=== PATIENT | male | born 1980 | race Hispanic/Latino ===

== ENCOUNTER 2016-08-27 02:56 | Observation (INO) | payer OTHER ==
[2016-08-27 03:55] LABS: BASO # 0.1 K/uL (0.0-0.2); BASO % 0.7 % (0.0-2.0); EOS # 0.1 K/uL (0.0-0.7); EOS % 1.2 % (0.0-4.0); HEMATOCRIT 45.8 % (35.0-51.0); LYMPH # 1.5 K/uL (1.0-4.3); LYMPH % 15.6 % (20.0-40.0); MEAN CELL VOLUME 87.6 fl (80.0-94.0); MEAN CORPUSCULAR HEMOGLOBIN 30.7 pg (27.0-31.0); MONO # 0.8 K/uL (0.0-0.8); MONO % 8.2 % (0.0-10.0); NEUT # 7.1 K/uL (1.8-7.0); NEUT % 74.3 % (50.0-75.0); NRBC % 0.1 % (0.0-0.0); RED CELL DISTRIBUTION WIDTH 13.5 % (11.5-14.5); WHITE BLOOD COUNT 9.6 K/uL (4.8-10.8)
[2016-08-27 04:02] LABS: ALB/GLOB RATIO 1.3 (1.0-2.1); ALCOHOL SERUM < 10 mg/dl (0-10); ALKALINE PHOSPHATASE 121 U/L (38-126); ALT/SGPT 40 U/L (21-72); AST/SGOT 28 U/L (17-59); BILIRUBIN,TOTAL 0.3 mg/dl (0.2-1.3); BLOOD UREA NITROGEN 16 mg/dl (9-20); CALCIUM 9.4 mg/dL (8.4-10.2); CARBON DIOXIDE 24 mmol/L (22-30); CHLORIDE 102 mmol/L (98-107); GFR AFRICAN-AMERICAN > 60; GLUCOSE,RANDOM 114 mg/dL (75-110); POTASSIUM 3.9 MMOL/L (3.6-5.0); SODIUM 142 mmol/l (132-148); TOTAL PROTEIN 8.1 G/DL (6.3-8.2)
--- NOTE | 2016-08-27 05:17 | ED PDOC ---
Upper Extremity Pain/Injury Time Seen by Provider: 08/27/16 03:20 Chief Complaint (Nursing): Upper Extremity Problem/Injury Chief Complaint (Provider): Left arm Pain History Per: Patient History/Exam Limitations: no limitations Onset/Duration Of Symptoms: Hrs (2 hrs) Current Symptoms Are (Timing): Still Present Additional Complaint(s): Brandon Jc, a 36 year old male, who has a history of obesity presents to the ED complaining of left arm pain. The patient reports that the pain started after he used a gram of cocaine. The patient reports that he does not regularly use cocaine and his last usage was some years ago. He reports that he became concerned after he began feeling pain in his left arm. Denies nausea, vomiting, palpitations an diaphoresis. Past Medical History Reviewed: Historical Data, Nursing Documentation, Vital Signs Vital Signs: Last Vital Signs Temp 98.5 F 08/27/16 03:14 Pulse 120 H 08/27/16 03:14 Resp 18 08/27/16 03:14 BP 153/94 H 08/27/16 03:14 Pulse Ox 98 08/27/16 03:14 - Medical History Other PMH: Obesity - Surgical History Surgical History: No Surg Hx - Family History Family History: States: Unknown Family Hx - Social History Current smoker - smoking cessation education provided: No Alcohol: Occasional Drugs: Cocaine - Home Medications Home Medications: Ambulatory Orders Medication Instructions Recorded No Known Home Med 08/27/16 - Allergies Allergies/Adverse Reactions: Allergies Allergy/AdvReac Type Severity Reaction Status Date / Time No Known Allergies Allergy Verified 08/27/16 03:17 Review of Systems ROS Statement: Except As Marked, All Systems Reviewed And Found Negative Constitutional: Positive for: Other (Denies diaphoresis) Cardiovascular: Negative for: Palpitations Gastrointestinal: Negative for: Nausea, Vomiting Musculoskeletal: Positive for: Arm Pain (Left arm pain) Physical Exam - Reviewed Nursing Documentation Reviewed: Yes Vital Signs Reviewed: Yes - Physical Exam Appears: Positive for: Non-toxic, No Acute Distress Head Exam: Positive for: ATRAUMATIC, NORMOCEPHALIC Skin: Positive for: Normal Color, Warm, Dry Eye Exam: Positive for: Normal appearance, EOMI, PERRL ENT: Positive for: Normal ENT Inspection Neck: Positive for: Normal, Painless ROM, Supple Cardiovascular/Chest: Positive for: Regular Rate, Rhythm, Chest Non Tender. Negative for: Tachycardia Respiratory: Positive for: Normal Breath Sounds. Negative for: Wheezing, Respiratory Distress Gastrointestinal/Abdominal: Positive for: Normal Exam, Soft. Negative for: Tenderness Back: Positive for: Normal Inspection. Negative for: L CVA Tenderness, R CVA Tenderness Extremity: Positive for: Normal ROM. Negative for: Deformity, Swelling Neurologic/Psych: Positive for: Alert, Oriented - Laboratory Results Result Diagrams: 08/27/16 03:50 08/27/16 03:50 - ECG O2 Sat by Pulse Oximetry: 98 (RA) Pulse Ox Interpretation: Normal Medical Decision Making Medical Decision Makin:20 Initial Impression: Chest pain in setting of known cocaine use. Initial Plan: * EKG * Alchol serum * CMP * Drug screen * Troponin * CBC * PTT * Prothrombin time * Chest Xray * Aspirin 324mg PO 4:02 Admission Patient will be placed observation status. Case was referred to Dr Franklin Patients labs reviews, no clinically significant abnormalities. Scribe Attestation: Documented by Kiya Locke acting as a scribe for Missy Encinas MD. Scribe Attestation: All medical record entries made by the Scribe were at my direction and personally dictated by me. I have reviewed the chart and agree that the record accurately reflects my personal performance of the history, physical exam, medical decision making, and the department course for this patient. I have also personally directed, reviewed, and agree with the discharge instructions and disposition. Disposition - Clinical Impression Clinical Impression: Chest pain, Cocaine abuse - Patient ED Disposition Is Patient to be Admitted: No Counseled Patient/Family Regarding: Studies Performed, Diagnosis - Disposition Disposition Time: 04:00 Condition: FAIR
[2016-08-27 06:17] LABS: PARTIAL THROMBOPLASTIN TIME 31.2 SECONDS (23.3-32.5)
--- NOTE | 2016-08-27 08:10 | RAD ---
HISTORY: admit COMPARISON: No prior. TECHNIQUE: Chest PA and lateral FINDINGS: LUNGS: No active pulmonary disease. PLEURA: No significant pleural effusion identified. No pneumothorax apparent. CARDIOVASCULAR: Normal. OSSEOUS STRUCTURES: No significant abnormalities. VISUALIZED UPPER ABDOMEN: Normal. OTHER FINDINGS: None. IMPRESSION: No active disease.
--- NOTE | 2016-08-27 10:03 | CARD ---
APPROVED REPORT EKG Measurement Heart [id number] <Conclusion> Sinus tachycardia Otherwise normal ECG
[2016-08-27 15:51] LABS: CHOLESTEROL 144 mg/dL (0-199)
--- NOTE | 2016-08-27 21:52 | CP.PCM.HP ---
History of Present Illness - History of Present Illness History of Present Illness: A 36 yr old male with hx of occasional drug use came with c\o left arm pain, numbness after he did sniff cocaine. dull, achy feeling . sister has have hx of cardiomyopathy.denies fhx of CAD he called 911. Present on Admission - Present on Admission Any Indicators Present on Admission: No Review of Systems - Constitutional Constitutional: Snoring. absent: Chills, Fever - EENT Eyes: absent: Diplopia, Other Visual Disturbances Nose/Mouth/Throat: absent: Epistaxis, Nasal Congestion, Mouth Lesions - Cardiovascular Cardiovascular: Rapid Heart Rate. absent: Dyspnea, Dyspnea on Exertion, Paroxysmal Nocturnal Dyspnea - Respiratory Respiratory: absent: Cough, Chest Congestion - Gastrointestinal Gastrointestinal: Dyspepsia. absent: Constipation - Musculoskeletal Musculoskeletal: absent: Arthralgias, Limited Range of Motion - Neurological Neurological: absent: Numbness, Frequent Falls, Paresthesias, Weakness - Endocrine Endocrine: absent: Palpitations Past Patient History - Past Medical History & Family History Past Medical History?: Yes - Past Social History Smoking Status: Never Smoked - CARDIAC Hx Cardiac Disorders: No - PULMONARY Hx Respiratory Disorders: No - NEUROLOGICAL Hx Neurological Disorder: No - HEENT Hx HEENT Problems: No - RENAL Hx Chronic Kidney Disease: No - ENDOCRINE/METABOLIC Hx Endocrine Disorders: No - HEMATOLOGICAL/ONCOLOGICAL Hx AIDS: No Hx Human Immunodeficiency Virus (HIV): No - INTEGUMENTARY Hx Dermatological Problems: No - MUSCULOSKELETAL/RHEUMATOLOGICAL Hx Falls: No - GASTROINTESTINAL Hx Gastrointestinal Disorders: No - GENITOURINARY/GYNECOLOGICAL Hx Genitourinary Disorders: No - PSYCHIATRIC Hx Substance Use: Yes (cocaine) - SURGICAL HISTORY Hx Surgeries: No - ANESTHESIA Hx Anesthesia: No Meds Allergies/Adverse Reactions: Allergies Allergy/AdvReac Type Severity Reaction Status Date / Time No Known Allergies Allergy Verified 08/27/16 03:17 Physical Exam - Constitutional Appears: Non-toxic, No Acute Distress - Head Exam Head Exam: NORMAL INSPECTION - Eye Exam Eye Exam: EOMI, Normal appearance, PERRL Pupil Exam: PERRL - ENT Exam ENT Exam: Mucous Membranes Moist, Normal Exam - Neck Exam Neck exam: Positive for: Normal Inspection - Respiratory Exam Respiratory Exam: Clear to Auscultation Bilateral, NORMAL BREATHING PATTERN. absent: Wheezes - Cardiovascular Exam Cardiovascular Exam: REGULAR RHYTHM, +S1, +S2. absent: Systolic Murmur - GI/Abdominal Exam GI & Abdominal Exam: Normal Bowel Sounds, Soft. absent: Tenderness - Extremities Exam Extremities exam: Positive for: normal inspection, pedal pulses present. Negative for: pedal edema - Neurological Exam Neurological exam: Alert, CN II-XII Intact, Normal Gait, Oriented x3 - Psychiatric Exam Psychiatric exam: Normal Mood - Skin Skin Exam: Intact, Normal Color Results - Vital Signs Recent Vital Signs: Last Vital Signs Temp 98.3 F 08/27/16 20:18 Pulse 82 08/27/16 20:18 Resp 18 08/27/16 20:18 BP 117/76 08/27/16 20:18 Pulse Ox 97 08/27/16 20:18 - Labs Result Diagrams: 08/27/16 03:50 08/27/16 03:50 Labs: Laboratory Results - last 24 hr 08/27/16 08/27/16 08/27/16 04:17 15:14 15:14 Troponin I < 0.0120 Triglycerides 126 Cholesterol 144 LDL Cholesterol Direct 81 HDL Cholesterol 35 Urine Opiates Screen Negative Urine Methadone Screen Negative Ur Barbiturates Screen Negative Ur Phencyclidine Scrn Negative Ur Amphetamines Screen Negative U Benzodiazepines Scrn Negative U Oth Cocaine Metabols Positive H U Cannabinoids Screen Negative - EKG Data EKG Interpreted by: Myself Rate: Normal Assessment & Plan (1) Chest pain Status: Acute (2) Drug use Status: Acute Decision To Admit - Pt Status Changed To: Hospital Disposition Of: Observation - . Bed Request Type: Telemetry (carleen) Admitting Physician: Cami Franklin
[2016-08-28 07:44] VITALS: RESP 20
[2016-08-28 12:08] VITALS: BP 139/88; PULSE 90; TEMP 97.9
--- NOTE | 2016-08-28 19:46 | CARD ---
APPROVED REPORT EXAM: Two-dimensional and M-mode echocardiogram with Doppler and color Doppler. Other Information Quality : AverageRhythm : NSR Technically limited study due to body habitus. INDICATION Chest Pain 2D DIMENSIONS IVSd1.02 (0.7-1.1cm)LVDd4.92 (3.9-5.9cm) PWd0.95 (0.7-1.1cm)IVSs1.34 (0.8-1.2cm) LVDs3.43 (2.5-4.0cm)FS (%) 30.2 % PWs1.36 (0.8-1.2cm) M-Mode DIMENSIONS Left Atrium (MM)4.08 (2.5-4.0cm)IVSd1.03 (0.7-1.1cm) Aortic Root3.13 (2.2-3.7cm)LVDd4.74 (4.0-5.6cm) Aortic Cusp Exc.2.02 (1.5-2.0cm)PWd0.88 (0.7-1.1cm) IVSs1.47 cmFS (%) 35 % LVDs3.09 (2.0-3.8cm)PWs1.91 cm Mitral Valve E/A ratio0.0 TDI E/Lateral E'0.0E/Medial E'0.0 LEFT VENTRICLE The left ventricle is normal size. There is normal left ventricular wall thickness. The left ventricular function is normal. The left ventricular ejection fraction is - 65%. There is normal LV segmental wall motion. The left ventricular diastolic function is normal. No left ventricle thrombus noted on this study. There is no ventricular septal defect visualized. There is no left ventricular aneurysm. There is no mass noted in the left ventricle. RIGHT VENTRICLE The right ventricle is normal size. There is normal right ventricular wall thickness. The right ventricular systolic function is normal. ATRIA The left atrium size appears normal on the 2D study. The right atrium size is normal. The interatrial septum is intact with no evidence for an atrial septal defect. AORTIC VALVE The aortic valve is normal in structure and function. No aortic regurgitation is present. There is no aortic valvular stenosis. MITRAL VALVE The mitral valve is normal in structure and function. There is no evidence of mitral valve prolapse. There is no mitral valve stenosis. There is no mitral valve regurgitation noted. TRICUSPID VALVE The tricuspid valve is normal in structure and function. There is no tricuspid valve regurgitation noted. There is no tricuspid valve prolapse or vegetation. There is no tricuspid valve stenosis. PULMONIC VALVE The pulmonic valve is not well visualized. Doppler studies of the PV were not performed. GREAT VESSELS The aortic root is normal in size. The IVC was not well visualized. PERICARDIAL EFFUSION The pericardium appears normal. There is no pleural effusion. <Conclusion> The study was a technically difficult examination. The left ventricle is normal in size and wall thickness. The left ventricular function is normal. The left ventricular ejection fraction is - 65%. The left atrium, right ventricle and right atrium are normal in size. The mitral, aortic and tricuspid valves appear normal.
--- NOTE | 2016-08-28 23:05 | CP.PCM.DIS ---
Provider - Provider Date of Admission: 08/27/16 04:02 Attending physician: Cami Franklin MD Time Spent in preparation of Discharge (in minutes): 30 Diagnosis - Discharge Diagnosis (1) Chest pain Status: Acute (2) Drug use Status: Acute Hospital Course - Lab Results Lab Results: Most Recent Lab Values WBC 9.6 K/uL (4.8-10.8) 08/27/16 03:50 RBC 5.23 Mil/uL (4.40-5.90) 08/27/16 03:50 Hgb 16.0 g/dL (12.0-18.0) 08/27/16 03:50 Hct 45.8 % (35.0-51.0) 08/27/16 03:50 MCV 87.6 fl (80.0-94.0) 08/27/16 03:50 MCH 30.7 pg (27.0-31.0) 08/27/16 03:50 MCHC 35.0 g/dL (33.0-37.0) 08/27/16 03:50 RDW 13.5 % (11.5-14.5) 08/27/16 03:50 Plt Count 259 K/uL (130-400) 08/27/16 03:50 MPV 9.0 fl (7.2-11.7) 08/27/16 03:50 Neut % (Auto) 74.3 % (50.0-75.0) 08/27/16 03:50 Lymph % (Auto) 15.6 % (20.0-40.0) L 08/27/16 03:50 [place] % (Auto) 8.2 % (0.0-10.0) 08/27/16 03:50 Eos % (Auto) 1.2 % (0.0-4.0) 08/27/16 03:50 Baso % (Auto) 0.7 % (0.0-2.0) 08/27/16 03:50 Neut # 7.1 K/uL (1.8-7.0) H 08/27/16 03:50 Lymph # 1.5 K/uL (1.0-4.3) 08/27/16 03:50 [place] # 0.8 K/uL (0.0-0.8) 08/27/16 03:50 Eos # 0.1 K/uL (0.0-0.7) 08/27/16 03:50 Baso # 0.1 K/uL (0.0-0.2) 08/27/16 03:50 PT 10.3 SECONDS (9.6-11.2) 08/27/16 03:50 INR 0.99 (0.92-1.08) 08/27/16 03:50 APTT 31.2 SECONDS (23.3-32.5) 08/27/16 03:50 Sodium 142 mmol/l (132-148) 08/27/16 03:50 Potassium 3.9 MMOL/L (3.6-5.0) 08/27/16 03:50 Chloride 102 mmol/L (98-107) 08/27/16 03:50 Carbon Dioxide 24 mmol/L (22-30) 08/27/16 03:50 Anion Gap 19 (10-20) 08/27/16 03:50 BUN 16 mg/dl (9-20) 08/27/16 03:50 Creatinine 0.9 mg/dL (0.8-1.5) 08/27/16 03:50 Est GFR ( Amer) > 60 08/27/16 03:50 Est GFR (Non-Af Amer) > 60 08/27/16 03:50 Random Glucose 114 mg/dL (75-110) H 08/27/16 03:50 Calcium 9.4 mg/dL (8.4-10.2) 08/27/16 03:50 Total Bilirubin 0.3 mg/dl (0.2-1.3) 08/27/16 03:50 AST 28 U/L (17-59) 08/27/16 03:50 ALT 40 U/L (21-72) 08/27/16 03:50 Alkaline Phosphatase 121 U/L (38-126) 08/27/16 03:50 Troponin I < 0.0120 ng/mL (0.00-0.120) 08/27/16 21:45 Total Protein 8.1 G/DL (6.3-8.2) 08/27/16 03:50 Albumin 4.6 g/dL (3.5-5.0) 08/27/16 03:50 Globulin 3.5 gm/dL (2.2-3.9) 08/27/16 03:50 Albumin/Globulin Ratio 1.3 (1.0-2.1) 08/27/16 03:50 Triglycerides 126 mg/DL (0-149) 08/27/16 15:14 Cholesterol 144 mg/dL (0-199) 08/27/16 15:14 LDL Cholesterol Direct 81 mg/dL (0-129) 08/27/16 15:14 HDL Cholesterol 35 MG/DL (30-70) 08/27/16 15:14 Urine Opiates Screen Negative (NEGATIVE) 08/27/16 04:17 Urine Methadone Screen Negative (NEGATIVE) 08/27/16 04:17 Ur Barbiturates Screen Negative (NEGATIVE) 08/27/16 04:17 Ur Phencyclidine Scrn Negative (NEGATIVE) 08/27/16 04:17 Ur Amphetamines Screen Negative (NEGATIVE) 08/27/16 04:17 U Benzodiazepines Scrn Negative (NEGATIVE) 08/27/16 04:17 U Oth Cocaine Metabols Positive (NEGATIVE) H 08/27/16 04:17 U Cannabinoids Screen Negative (NEGATIVE) 08/27/16 04:17 Alcohol, Quantitative < 10 mg/dl (0-10) 08/27/16 03:50 Discharge Exam - Head Exam Head Exam: NORMAL INSPECTION Discharge Plan - Follow Up Plan Condition: FAIR Disposition: HOME/ ROUTINE Instructions: Weight Management (DC)
[2016-08-29 21:33] VITALS: O2SAT 98
== END 2016-08-28 15:12 | disposition home or self-care (01) ==
LOC: H.ER 02:56 → H.ERHOLD 04:02 → H.TEL 14:40
PROVIDERS: ADMIT Internal Medicine; ATTEND Internal Medicine
DX: R07.89 Other chest pain (principal); M79.602 Pain in left arm; E66.9 Obesity, unspecified; F14.90 Cocaine use, unspecified, uncomplicated